=== PATIENT | male | born 1960 | race Caucasian/White ===

== ENCOUNTER → 2022-03-02 14:39 | Outpatient (BNVA) | payer OTHER, SELFPAY | PROVIDERS: Visit Provider Podiatrist Foot & Ankle Surgery | DX: M19.172 Post-traumatic osteoarthritis, left ankle and foot (principal); M25.372 Other instability, left ankle | CPT/HCPCS: 73610 ==

== ENCOUNTER → 2022-08-04 09:54 | Outpatient (BNVA) | payer OTHER, SELFPAY | PROVIDERS: Referring Provider Podiatrist Foot & Ankle Surgery; Visit Provider Specialist | DX: M17.0 Bilateral primary osteoarthritis of knee (principal) | CPT/HCPCS: 73560; 73565 ==

== ENCOUNTER 2025-01-21 09:45 | Emergency (ER) | payer OTHER, SELFPAY ==
[2025-01-21 09:47] VITALS: BP 219/98; PULSE 62; TEMP 36.8; O2SAT 96; BMI 33.9
--- NOTE | 2025-01-21 09:47 | XR_ITS ---
WS: [id number] XR chest 1V portable [id number] REASON FOR EXAM: cp FINDINGS: No previous examination for comparison. The heart is at the upper limits of normal in size. There is mild prominence of the central pulmonary veins. Calcified granulomatous disease bilaterally. There are reticular interstitial lung opacities in both lower lung dee with horizontal linear opacities along the pleural margin. Chronicity of these changes is unknown. Moderate degenerative spondylosis of the thoracic spine. XR/XR chest 1V portable [id number] IMPRESSION: Lung opacities are of unknown chronicity however findings could represent early congestive heart failure.
--- NOTE | 2025-01-21 09:51 | ECG_ITS ---
[facility]25[facility]01[facility]21 Pat Name: Nav Bernal Department: Room: Gender: Male Soccer Referee: : 1960 Requested By: Rica Morrow Order Number: [id number] White MD: Cory Pena M.D. Measurements Intervals [place] Rate: 59 P: 26 ID: [id number] QRS: 27 QRSD: 93 T: 50 QT: 450 QTc: 449 Interpretive Statements SINUS BRADYCARDIA NONSPECIFIC T-WAVE ABNORMALITY No previous ECG available for comparison Electronically Signed On 01-23-2025 22:28:34 TILE PRESSER by Cory Pena M.D. [email or web address] [id number]
--- NOTE | 2025-01-21 10:01 | CT_ITS ---
WS: [id number] CT HEAD NONCONTRAST HISTORY: [place] TECHNIQUE: Contiguous axial imaging performed through the brain. Bone and soft tissue windows. Sagittal and coronal reformats reviewed. All CT scans at [facility] use at least one of these dose optimization techniques: automated exposure control; mA and/or kV adjustment per patient size (includes targeted exams where dose is matched to clinical indication); or iterative reconstruction. DLP: 1239.88 mGy.cm COMPARISON: None available. No acute intracranial hemorrhage, midline shift or mass effect. No atrophy or prior infarcts or herniation. Ventricles: Normal size with no hydrocephalus. Paranasal sinuses: As visualized are clear. Mastoid air cells: Well pneumatized. Calvarium and scalp: Skull is intact with no soft tissue edema or swelling. CT/CT head wo con* [id number] IMPRESSION: Negative head CT.
--- NOTE | 2025-01-21 10:02 | ED_ITS ---
HPI - Headache 2 General: Chief Complaint: Headache Stated Complaint: cp, high bp, headache Time Seen by Provider: 01/21/25 09:54 Source: patient Mode of arrival: ambulatory Limitations: no limitations History of Present Illness: 64-year-old male who has a history of hy pertension states that his blood pressure been running high over the last week. He states that during this time he has had a headache as well he states headaches currently an 8 out of 10 he said some intermittent mild chest pains denies any chest pain currently. He denies any shortness of breath denies any fevers. Denies any worse improved factors Related Data Home Medications ?Medication ?Instructions ?Recorded ?Confirmed acetaminophen 300 mg-codeine 30 mg ea PO 03/02/2207/16 tablet atorvastatin 40 mg tablet ea PO 03/02/22 08/04/22 cephalexin 500 mg capsule ea PO 03/02/22 08/04/22 cyclobenzaprine 10 mg tablet ea PO 03/02/22 08/04/22 gabapentin 300 mg capsule ea PO 03/02/22 08/04/22 ibuprofen 800 mg tablet ea PO 03/02/22 08/04/22 metformin 850 mg tablet ea PO 03/02/22 08/04/22 metoprolol tartrate 100 mg tablet ea PO 03/02/2208/04 olmesartan 40 ea PO 03/02/22 08/04/22 mg-hydrochlorothiazide 25 mg tablet tamsulosin 0.4 mg capsule ea PO 03/02/22 08/04/22 Previous Rx's ?Medication ?Instructions ?Recorded AFO to the left #1 ea 03/02/22 amlodipine 10 mg tablet (Norvasc) 10 mg PO DAILY #30 t abs 01/21/25 Allergies Allergy/AdvReac Type Severity Reaction Status Date / Time No Known Allergies Allergy Verified 01/21/25 09:56 Review of Systems 2 Neuro: Reports: headache(s) Physical Exam 2 Const: COMMON NORMALS: patient oriented x3 HENMT: COMMON NORMALS: normocephalic and atraumatic HEAD & SCALP: n ormocephalic and atraumatic Eye: COMMON NORMALS: Equal, round and reactive pupils present and EOMs intact bilaterally PUPIL: Yes Equal, round and reactive pupils present Neck/C-Spine: COMMON NORMALS: full ROM and supple Chest: COMMONS NORMALS: normal inspection of the chest and normal palpation of entire chest wall Resp: COMMON NORMALS: normal respiratory effort, No retractions, No use of accessory muscles and clear to auscultation bilaterally AUSCULTATION: clear to auscultation bilaterally Cardio: COMMON NORMALS: regular rate, regular rhythm and No murmurs present (Cardio) RATE: regular rate RHYTHM: regular rhythm GI: COMMON NORMALS: Normal to inspection, nondistended, normoactive bowel sounds present, Soft to palpation, non-tender and no masses PALPATION: Yes Soft to palpation Extremity: COMMON NORMALS: normal to inspection and full ROM Neuro: COMMON NORMALS: patient oriented x3, moves all extremities and no focal motor deficits Psych: COMMON NORMALS: mental status grossly normal, Normal thought process present and cooperative THOUGHT PROCESS: Normal thought process present Skin: COMMON NORMALS: no rashes or lesions noted and no wounds GENERAL SKIN EXAM: no rashes or lesions noted Course 2 Vital Signs: Vital signs: Vital Signs Temperature 98.2 F 01/21/25 09:47 Pulse Rate 60 01/21/25 12:45 Respiratory Rate 15 01/21/25 12:32 Blood Pressure 159/77 01/21/25 12:45 Pulse Oximetry 95 01/21/25 12:45 Oxygen Delivery Me thod Room Air 01/21/25 09:47 Clincial Decision Support The following clinical decision support tools were used to aid in care of the patient HEART Score -> History: Slightly Suspicous, EKG: Normal, Age: 45-64 yrs, Risk Factors: 1 or 2 Risk Factors, Troponin: Baseline Trop <16 ng/L. Resulting HEART Score: 2. [facility] - Headache Medical Decision Making Patient presents here with hypertension along with headache. Patient is on diuretic but states he had not been taking it as it made him urinate too often. His headache here has improved his blood pressures improved as well. Differential here includes subarachnoid hemorrhage, meningitis. He has no signs of either head CT was normal this is not the worst headache of his life. Also having chest pain as well as atypical nature no signs of ACS as troponin delta was negative. Will start him on Norvasc he is to take his other meds as prescribed return if worsening. EKG interpreted by me at 0951 sinus bradycardia heart rate [address] elevation QRS 93 QTc 450 Second EKG reviewed by me at 1141 sinus bradycardia heart rate [address] elevation QRS 91 QTc 432 Medical Records I reviewed the patient's medical records. Lab Data I reviewed the patient's lab results. 01/21/25 10:04 01/21/25 10:04 Radiology Impressions Chest X-Ray 01/21/25 09:47 IMPRESSION: Lung opacities are of unknown chronicity however findings could represent early congestive heart failure. Head CT 01/21/25 10:01 IMPRESSION: Negative head CT. Laboratory Results WBC 6.15 10^3/uL (3.29-11.43) 01/21/25 10:04 RBC 6.12 10^6/uL (3.85-5.65) H 01/21/25 10:04 Hgb 16.60 g/dL (11.27-16.99) 01/21/25 10:04 Hct 50.1 % (37-53) 01/21/25 10:04 MCV 81.9 fl (82-101) L 01/21/25 10:04 MCH 27.1 pg (27-33) 01/21/25 10:04 MCHC 33.1 g/dL (30-55) 01/21/25 10:04 RDW 13.8 % (12.1-15.1) 01/21/25 10:04 Plt Count 181 10^3/cmm (157-399) 01/21/25 10:04 MPV 9.8 fL (7.4-10.4) 01/21/25 10:04 Neut % (Auto) 65.7 % 01/21/25 10:04 Lymph % (Auto) 19.5 % 01/21/25 10:04 Clay % (Auto) 9.1 % 01/21/25 10:04 Eos % (Auto) 4.4 % 01/21/25 10:04 Baso % (Auto) 1.0 % 01/21/25 10:04 Neut # (Auto) 4.04 10^3/uL (1.8-7.7) 01/21/25 10:04 Lymph # (Auto) 1.2 10^3/uL (0.8-4.8) 01/21/25 10:04 Clay # (Auto) 0.6 10^3/uL (0.2-0.9) 01/21/25 10:04 Eos # (Auto) 0.3 10^3/uL (0.0-0.8) 01/21/25 10:04 Baso # (Auto) 0.1 10^3/uL (0.0-0.1) 01/21/25 10:04 Nucleated RBC % (auto) 0 % 01/21/25 10:04 Nucleated RBCs # 0.0 /100WBC 01/21/25 10:04 Sodium 138 mmol/L (136-145) 01/21/25 10:04 Potassium 4.2 mmol/L (3.5-5.1) 01/21/25 10:04 Chloride 103 mmol/L (98-107) 01/21/25 10:04 Carbon Dioxide 25 mmol/L (22-29) 01/21/25 10:04 Anion Gap 14.2 (5-19) 01/21/25 10:04 BUN 10 mg/dL (8-23) 01/21/25 10:04 Creatinine 0.4 mg/dL (0.7-1.2) L 01/21/25 10:04 GFR Calculation 217.3 mL/min (90-130) H 01/21/25 10:04 Glucose 116 mg/dL (65-115) H 01/21/25 10:04 Calculated Osmolality 286 mOsm/kg (285-295) 01/21/25 10:04 Calcium 9.0 mg/dL (8.5-10.5) 01/21/25 10:04 Total Bilirubin 1.2 mg/dL (0.15-1.2) 01/21/25 10:04 AST 16 U/L (0-40) 01/21/25 10:04 ALT 25 U/L (0-41) 01/21/25 10:04 Alkaline Phosphatase 95 U/L (40-130) 01/21/25 10:04 Troponin T Baseline 16 ng/L (0-15) H 01/21/25 10:04 Troponin T 120 Minute 16.08 ng/L (0-15) H 01/21/25 11:50 Delta Troponin T 0.08 ABS# (0-10) 01/21/25 11:50 NT-Pro-B Natriuret Pep 740 pg/mL (0-125) H 01/21/25 10:04 Total Protein 6.3 g/dL (6.6-8.7) L 01/21/25 10:04 Albumin 4.7 g/dL (3.5-5.2) 01/21/25 10:04 Globulin 1.6 g/dL (1.3-4.6) 01/21/25 10:04 Lipase 24 U/L (13-60) 01/21/25 10:04 All radiology interpretation(s) finalized by discharge Discharge Plan Discharge Patient Disposition: Home Clinical Impression: Headache, Hypertension Condition: Stable Prescriptions: New amlodipine [Norvasc] 10 mg tablet 10 mg PO DAILY Qty: 30 0RF No Action cephalexin 500 mg capsule PO ibuprofen 800 mg tablet PO gabapentin 300 mg capsule PO metoprolol tartrate 100 mg tablet PO acetaminophen-codeine 300-30 mg tablet PO atorvastatin 40 mg tablet PO tamsulosin 0.4 mg capsule PO cyclobenzaprine 10 mg tablet PO metformin 850 mg tablet PO olmesartan-hydrochlorothiazide 40-25 mg tablet PO (DME) AFO to the left See Rx Instructions .Route .MEDSUPPLY Qty: 1 0RF Rx Instructions: As directed by JENNIFER&O Discharge Orders: Discharge ED (Routine); Ordered 01/21/25 Ordered By: Rica Morrow Discharge Diet: Advance as tolerated Discharge Activity: Resume usual activity Patient Instructions: Hypertension (ED) Print Language: French Coding Level of Care Code ED Telephone Lineman for Sharita Crawford
[2025-01-21] MEDS: ondansetron 2 mg/ML SDV 2 mL 4 MG IVP (10:09)
[2025-01-21 10:10] LABS: Hematocrit 50.1 % (37-53); Hemoglobin 16.60 g/dL (11.27-16.99); Mean Corpuscular HGB Conc 33.1 g/dL (30-55); Mean Corpuscular Hemoglobin 27.1 pg (27-33); Mean Corpuscular Volume 81.9 fl (82-101); Nucleated Red Blood Cells % 0 %; Platelet Count 181 10^3/cmm (157-399); Red Blood Count 6.12 10^6/uL (3.85-5.65); White Blood Count 6.15 10^3/uL (3.29-11.43)
[2025-01-21] MEDS: morphine 4 mg/mL SDV 1 mL IVP (10:10)
[2025-01-21] MEDS: hyDRALAzine 20 mg/mL INJ 1 mL 10 MG IVP (10:10)
[2025-01-21 10:12] VITALS: BP 203/118; PULSE 53; O2SAT 93
[2025-01-21 10:28] LABS: Troponin(5th) Baseline 16 ng/L (0-15)
[2025-01-21 10:42] LABS: Alanine Aminotransferase 25 U/L (0-41); Albumin Level 4.7 g/dL (3.5-5.2); Alkaline Phosphatase 95 U/L (40-130); Anion Gap 14.2 (5-19); Aspartate Amino Transferase 16 U/L (0-40); Blood Urea Nitrogen 10 mg/dL (8-23); Calcium 9.0 mg/dL (8.5-10.5); Carbon Dioxide 25 mmol/L (22-29); Chloride 103 mmol/L (98-107); Globulin 1.6 g/dL (1.3-4.6); Glucose 116 mg/dL (65-115); Lipase 24 U/L (13-60); Osmolality Calculated 286 mOsm/kg (285-295); Potassium 4.2 mmol/L (3.5-5.1); Sodium 138 mmol/L (136-145); Total Protein 6.3 g/dL (6.6-8.7)
[2025-01-21 10:52] LABS: NT Pro B Type Natriuretic Pept 740 pg/mL (0-125)
[2025-01-21] MEDS: FUROsemide 10 mg/mL SDV 4mL 40 MG IVP (11:42)
--- NOTE | 2025-01-21 11:47 | ECG_ITS ---
[facility] Date: 2025-01-21 Pat Name: Nav Bernal Department: Room: Gender: Male Infection Prevention Specialist: : 1960 Requested By: Rica Morrow Order Number: [id number] Christopher MD: Marissa Solorzano M.D. Measurements Intervals [place] Rate: 58 P: 37 [place]: 211 QRS: 25 QRSD: 91 T: 101 QT: 435 QTc: 430 Interpretive Statements SINUS BRADYCARDIA WITH FIRST DEGREE AV BLOCK NONSPECIFIC T-WAVE ABNORMALITY Compared to ECG 01/21/2025 09:51:55 First degree AV block now present T-wave abnormality still present Electronically Signed On 01-24-2025 18:18:47 PRINCIPAL NETWORK ARCHITECT by Marissa Solorzano M.D. [id number]
[2025-01-21 12:32] VITALS: BP 159/77; PULSE 59; RESP 15; O2SAT 96
[2025-01-21 12:45] VITALS: BP 159/77; PULSE 60; O2SAT 95
== END 2025-01-21 12:47 | disposition home or self-care (01) ==
PROVIDERS: Emergency Provider Emergency Medicine
DX: R51.9 Headache, unspecified (principal); I10 Essential (primary) hypertension
CPT/HCPCS: 36415; 70450; 71045; 80053; 83690; 83880; 84484; 85025; 93005; 96374; 96375; 99285; J0360; J1885; J1938; J2270; J2405